=== PATIENT | female | born 1995 | race Caucasian/White ===

== ENCOUNTER 2018-02-13 09:36 | Inpatient (IN) | payer OTHER ==
[2018-02-13] MEDS ORDERED: Penicillin G Potassium IV* 5,000,000 UNITS in NS 0.9% 100 ML* 100 ML IVPB ONE (10:20)
--- NOTE | 2018-02-13 10:32 | HP ---
General Information - General Information Maternal Age: 22 Grav: 4 Para: 1 SAB: 1 IEA: 1 Estimated Due Date: 02/20/18 Determined By: LMP Gestational Age in Weeks and Days: 38 Weeks and 6 Days Maternal Blood Type and Rh: O Positive - Results this Serology/RPR Result: Non-Reactive Rubella Result: Immune HBsAg Result: Negative HIV Result: Negative GBS Culture Result: Positive Past Medical History Delivery History: Hx Uncomplicated Vaginal Delivery Pertinent Past Medical History: See Records - Grave's Diseases, hypothyroidism, Urethral diverticulum Pertinent Past Surgical History: See Records - appendix, thyroidectomy , bunions Pertinent Family History: See Records Family History Comment: Epilepsy, HTN, colon CA, Breast cancer - Antepartal Records Antepartal Records: Reviewed, Complicated by: - hypothyroid, circumvallate placenta, GBS +,urethral diverticulum Review of Systems Constitutional: Comfortable CV Complaint: No Respiratory: Shortness of Breath: No Gastrointestinal: No Nausea/Vomiting, Normal Bowel Movement Genitourinary: No Dysuria, No Bleeding Musculoskeletal: No Complaint Neurological: No Headache Movement: Normal Exam Allergies/Adverse Reactions: Allergies propofol Allergy (Mild, Verified 02/12/18 11:06) Rash T:99.0F, P:86, R:20, BP:123/74, O2:100 - Measurements Height: 5 ft 7 in Weight: 187 lb Body Mass Index (BMI): 29.2 Pre- Weight: 115 lb - Exam Abdomen: No Upper Quadrant Pain Breast: Breast Exam Deferred CVA: No CVA Tenderness Extremities: No Edema Heart: Normal Rhythm/Heart Sounds HEENT: No Significant Findings Lungs: Clear Bilaterally Rectal: Rectal Exam Deferred Thyroid: - - No thyroid - Abdominal Exam Abdomen Exam: Non-Tender, Fundal Height Consistent with Dates - Ultrasound/Biophysical Profile Ultrasound Status: Not Done Targeted Exam Findings Estimated Weight: 8lbs Cervical Exam: 3cm Effacement: 80% Station: -1 Presenting Part: Vertex Membrane Status: Intact Bleeding/Discharge: None EFM Findings - External Monitor Findings Baseline Heart Rate: 140 External Monitor Findings: Accelerations Present, No Pattern of Variable or Late Decelerations, Variability Moderate, Baseline Stable Contractions: None, Irregular Assessment/Plan - Obstetrical Risk Factors Obstetrical Risk Factors: GBS Positive - Plan Plan: Induction - Date/Time of Admission Date of Admission: 02/13/18 Time of Admission: 10:00
[2018-02-13] MEDS ORDERED: Buffered Lidocaine 0.9% SYRIN* 5 ML/SYR SYRINGE ONE (10:39)
[2018-02-13] MEDS ORDERED: Misoprostol TAB* 100 MCG ONE (11:06)
[2018-02-13 11:17] LABS: ABS Basophils 0 10^3/ul (0-0.2); ABS Eosinophils 0 10^3/ul (0-0.6); ABS Lymphocytes 1.7 10^3/ul (1.0-4.8); ABS Monocytes 0.9 10^3/ul (0-0.8); ABS Neutrophils 8.5 10^3/ul (1.5-7.7); ABS Nucleated RBC 0 10^3/ul; Eosinophil % 0.2 % (0-6); Hematocrit 33 % (35-47); Hemoglobin 10.8 g/dl (12.0-16.0); Lymphocyte % 15.6 % (25-47); Mean Corpuscular HGB Conc 33 g/dl (31-36); Mean Corpuscular Hemoglobin 27 pg (27-31); Mean Corpuscular Volume 84 fL (80-97); Mean Platelet Volume 7.4 um3 (7.4-10.4); Nucleated Red Blood Cells % 0; Platelet Count 258 10^3/ul (150-450); Red Blood Count 3.94 10^6/ul (4.0-5.4); Red Cell Distribution Width 17 % (10.5-15); White Blood Count 11.2 10^3/ul (3.5-10.8)
[2018-02-13] MEDS ORDERED: Misoprostol TAB* 100 MCG PO ONE (12:01)
[2018-02-13] MEDS: Penicillin G Potassium IV* 2,500,000 UNITS in NS 0.9% 100 ML* 100 ML IVPB SCH ×2 (14:49→19:40)
[2018-02-13] MEDS ORDERED: OXYTOCIN* 10 UNITS/ML 1 ML VIAL IM ONE (20:33)
[2018-02-13] MEDS ORDERED: Glycerin ADULT SUPP PR PRN (20:33)
[2018-02-13] MEDS ORDERED: Misoprostol TAB* 200 MCG PR ONE (20:33)
[2018-02-13] MEDS ORDERED: Simethicone TAB* 80 MG TAB.CHEW PO SCH (21:00)
[2018-02-13] MEDS: Docusate CAP* 100 MG PO SCH (21:30)
[2018-02-13] MEDS: Ibuprofen TAB* 600 MG PO PRN (21:36)
[2018-02-14] MEDS: Dibucaine 1% 28.35 GM TUBE PR PRN ×2 (00:52→21:01)
[2018-02-14] MEDS: Witch Hazel PAD* JAR TOPICAL PRN ×3 (00:52→21:01)
[2018-02-14] MEDS: Acetaminophen TAB* 325 MG PO PRN (00:52)
[2018-02-14] MEDS: Levothyroxine TAB* 125 MCG TAB PO SCH (06:40)
[2018-02-14] MEDS: Docusate CAP* 100 MG PO SCH ×3 (07:47→21:01)
[2018-02-14] MEDS: Ibuprofen TAB* 600 MG PO PRN ×2 (07:47→14:14)
[2018-02-14] MEDS ORDERED: Ferrous Gluconate TAB* 324 MG TAB PO SCH (09:00)
[2018-02-14 09:40] LABS: ABS Basophils 0 10^3/ul (0-0.2); ABS Eosinophils 0 10^3/ul (0-0.6); ABS Lymphocytes 2.2 10^3/ul (1.0-4.8); ABS Monocytes 1.5 10^3/ul (0-0.8); ABS Neutrophils 13.2 10^3/ul (1.5-7.7); ABS Nucleated RBC 0 10^3/ul; Eosinophil % 0.1 % (0-6); Hematocrit 30 % (35-47); Hemoglobin 10.1 g/dl (12.0-16.0); Mean Corpuscular HGB Conc 33 g/dl (31-36); Mean Corpuscular Hemoglobin 28 pg (27-31); Mean Corpuscular Volume 84 fL (80-97); Mean Platelet Volume 7.7 um3 (7.4-10.4); Nucleated Red Blood Cells % 0.1; Platelet Count 240 10^3/ul (150-450); Red Blood Count 3.61 10^6/ul (4.0-5.4); Red Cell Distribution Width 17 % (10.5-15); White Blood Count 17.1 10^3/ul (3.5-10.8)
[2018-02-15] MEDS: Levothyroxine TAB* 125 MCG TAB PO SCH (05:44)
[2018-02-15] MEDS: Acetaminophen TAB* 325 MG PO PRN (07:48)
[2018-02-15] MEDS: Docusate CAP* 100 MG PO SCH (07:48)
[2018-02-15 08:30] VITALS: BP 104/58
== END 2018-02-15 13:50 | disposition home or self-care (01) | DRG 560 ==
LOC: MCHOBOUT 09:36 → MCHOB 10:35
PROVIDERS: ADMIT Midwife; ATTEND Midwife
PROC: 10907ZC Drainage of Amniotic Fluid, Therapeutic from Products of Conception, Via Natural or Artificial Opening (ICD-10-PCS; principal; 2018-02-13)
PROC: 4A1HXCZ Monitoring of Products of Conception, Cardiac Rate, External Approach (ICD-10-PCS; 2018-02-13)
PROC: 3E0P7VZ Introduction of Hormone into Female Reproductive, Via Natural or Artificial Opening (ICD-10-PCS; 2018-02-13)
PROC: 10E0XZZ Delivery of Products of Conception, External Approach (ICD-10-PCS; 2018-02-13)
DX: O99.284 Endocrine, nutritional and metabolic diseases complicating childbirth (principal); O43.113 Circumvallate placenta, third trimester; E89.0 Postprocedural hypothyroidism; O99.824 Streptococcus B carrier state complicating childbirth; O32.6XX0 Maternal care for compound presentation, not applicable or unspecified; O75.89 Other specified complications of labor and delivery; N36.1 Urethral diverticulum; Z3A.39 39 weeks gestation of pregnancy; Z37.0 Single live birth
CPT/HCPCS: 36415; 84439; 84443; 85025; 86850; 86900; 86901; A9270-GY; J2540; S0191